=== PATIENT | female | born 1990 | race Two or more races ===

== ENCOUNTER → 2019-06-30 13:38 | Outpatient (CLI) | payer BC, SELFPAY ==
[2019-07-08 11:58] LABS: HPV APTIMA, High Risk Negative (Negative)
[2019-07-08 12:05] LABS: HPV Reflexed? YES, CHARGE PATIENT
== END ==
PROVIDERS: Visit Provider Obstetrics & Gynecology
DX: Z12.4 Encounter for screening for malignant neoplasm of cervix (principal)
CPT/HCPCS: 87624; 88175; G0145